=== PATIENT | female | born 1955 | race Caucasian/White ===

== ENCOUNTER 2017-03-05 08:58 | Outpatient (CLI) | payer BC ==
--- NOTE | 2017-03-20 15:30 | MMO ---
BILATERAL DIGITAL SCREENING MAMMOGRAMS: Date: 03/05/17 This patient's mammogram was interpreted with the assistance of computer-aided detection. Comparison made with exam of 05/30/07. FINDINGS: There are scattered fibroglandular densities. No suspicious masses or calcifications or architectura l distortion are seen. IMPRESSION: BIRADS 1: Negative Annual mammographic screening is recommended. POS: [facility]
== END 2017-03-05 08:59 | disposition home or self-care (01) ==
LOC: SCSMAMMO 08:58
PROVIDERS: ATTEND Family Medicine
DX: Z12.31 Encounter for screening mammogram for malignant neoplasm of breast (principal)
CPT/HCPCS: 77067; G0202

== ENCOUNTER 2017-03-07 08:50 | Outpatient (CLI) | payer BC ==
--- NOTE | 2017-03-07 10:43 | CT ---
LOW DOSE LUNG SCREENING CT THORAX 03/07/2017 HISTORY: Smoking history for about 30 years. FINDINGS: No pulmonary nodule, mass, or pleural effusion is seen throughout the lungs bilaterally. There is limited evaluation of the mediastinal structures due to lack of intravenous contrast, but n o definite enlarged lymph nodes are seen. Minimal vascular calcifications are seen at the aortic ar ch. Visualized upper abdomen demonstrates a normal non-enhanced CT appearance. Osseous structures are intact. IMPRESSION: Lung RADS category 1, negative - no pulmonary nodules are visualized. Continued annual screening wi th low-dose CT scan is recommended in 12 months. POS: [facility]
== END 2017-03-07 08:51 | disposition home or self-care (01) ==
LOC: CT 08:50
PROVIDERS: ATTEND Family Medicine
DX: Z87.891 Personal history of nicotine dependence (principal); R91.8 Other nonspecific abnormal finding of lung field
CPT/HCPCS: G0297